=== PATIENT | female | born 1975 | race Caucasian/White ===

== ENCOUNTER 2018-03-18 18:33 | Emergency (ER) | payer MEDICAID, SELFPAY ==
[2018-03-18 19:06] VITALS: BP 112/62; PULSE 84; RESP 16; TEMP 36.7; O2SAT 100
[2018-03-18] MEDS: Normal Saline 1,000 ML 1000 ML IV (19:45)
[2018-03-18 19:50] LABS: Bilirubin Negative (Negative); Blood Small (Negative); Clarity Cloudy; Glucose Negative (Negative); Ketones Trace mg/dL (Negative); Leukocyte Esterase Negative (Negative); Nitrite Positive (Negative); Specific Gravity >= 1.030 (1.005-1.025); Urobilinogen 0.2 EU/dL (Up TO 0.2)
[2018-03-18 19:59] LABS: Absolute Basophil Count 0.05 k/cumm (0.0-0.2); Absolute Lymphocyte Count 3.33 k/cumm (1.2-3.4); Absolute Monocyte Count 0.64 k/cumm (0.11-0.7); Basophils % 0.7; Eosinophils % 2.6; HGB 12.5 g/dL (12.0-15.5); Lymphocytes % 43.7; Mean Corp. HGB Concentration 33.8 g/dL (32.0-36.0); Mean Corpuscular Hemoglobin 31.6 pg (27.0-33.0); Mean Corpuscular Volume 93.7 fL (80-95); Mean Platelet Volume 10.6 fL (8.0-11.0); Monocytes % 8.4; Neutrophils % 44.6; Platelet Count 289 x1000/uL (130-400); RBC 3.95 m/cumm (4.00-5.20); RBC Distribution Width 14.8 % (11.7-14.6); White Blood Cell Count 7.62 k/cumm (4.4-10.8)
[2018-03-18] MEDS: Normal Saline Flush 10 ML SYR IVP (20:04)
[2018-03-18] MEDS: Ketorolac 15 MG/ML VIAL IVP (20:04)
--- NOTE | 2018-03-18 20:05 | ED.GENADUL_ITS ---
Discharge Plan Disposition Patient Disposition: HOME Condition: Good Discharge Details Chief Complaint: Abd Prob Clinical Impression: Abdominal pain, Cyst of left ovary, UTI (urinary tract infection) Primary Care Provider: Tosin Steele ED Provider: Roni Tracey Home Meds and New Rx's Prescriptions: New ciprofloxacin HCl 500 mg tablet 500 mg PO BID Qty: 14 RF: 0 Continue meloxicam [Mobic] 7.5 MG tablet 7.5 - 15 mg PO DAILY Qty: 60 RF: 0 multivitamin Tablet 1 tab PO DAILY RF: 0 acetaminophen 325 mg Tablet 650 mg PO Q6H PRNRF: 0 Discharge Instructions Instructions: Ovarian Cyst (ED), Urinary Tract Infection in Women (ED) Additional Instructions: follow up with your primary care provider within the next 2 weeks for pain take 1000mg tylenol and 600mg ibuprofen every 6 hours as needed if you have severe worsening pain, persistent vomit or high fevers return to the emergency department Discharge Data Discharge Physician: Roni Tracey Medical Decision Making 42 yo female who denies chronic medical problems, prior tubal ligation, who comes in with cc of right sided abd pain since around 430. On exam she has tenderness without gurading in the ruq, no rlq pain. will obtain labs to eval for pancreatitis and hepatitis and image to eval for cholecystitis. ' pt's blood work shows no significant abnormality. CT shows ovarian cysts on the left otherwise no acute pathology and pt's pain is now gone. Her urine does show evidence of uti and she does state she has had decreased urinary output so will start tx for this. Advised f/u with her pcp and return precautions given Differential Diagnosis pancreatitis, biliary colic, cholecystitis Imaging Data Radiologic Study: Attestation: I personally reviewed and interpreted this imaging study as follows: Imaging: CT Scan Radiologist's impression: left ovarian cysts Lab Data Lab results reviewed: Yes I reviewed the patient's lab results. HPI General Mode of arrival: ambulatory . Date/Time Provider Initiated Documentation: 03/18/18 19:52 . Limitations to Documentation: no limitations . Information obtained by: patient . History of Present Illness 42 year old F presents to the emergency department with the chief complaint of abdominal pain, described as moderate, with intensity rated at 5. Quality is described as aching, and is localized to the abdomen. Patient reports no radiation. Patient started experiencing this minute(s) (4) and it has been constant. No relieving factors improve symptom(s), No exacerbating factors reported . Patient notes no other symptoms.. Patient did receive the following treatments prior to arrival, none Related Data Home Medications Medication Instructions Recorded Confirmed meloxicam [Mobic] 7.5 - 15 mg PO DAILY #60 tab-cap 08/24/15 03/18/18 acetaminophen 650 mg PO Q6H PRN 03/18/18 03/18/18 ciprofloxacin HCl 500 mg PO BID #14 tab 03/18/18 multivitamin 1 tab PO DAILY 03/18/18 03/18/18 Previous Rx's Medication Instructions Recorded ciprofloxacin HCl 500 mg PO BID #14 tab 03/18/18 Allergies Allergy/AdvReac Type Severity Reaction Status Date / Time Penicillins AdvReac Intermediate vomiting Unverified 03/18/18 19:09 General Stated Complaint: Abd Prob KRISTI: 3 Review of Systems Review of Systems All systems reviewed & are unremarkable except as noted in HPI and below Constitutional Denies chills, Denies fever(s) and Denies weakness Eyes Denies loss of vision ENT Denies change in voice Cardiovascular Denies chest pain and Denies dyspnea Respiratory Denies dyspnea Gastrointestinal Denies vomiting Genitourinary Denies dysuria Musculoskeletal Denies joint swelling Integumentary/Breasts Denies rash Neurologic Denies loss of vision and Denies weakness PFSH Family History Mother Personal history of malignant neoplasm Father Personal history of malignant neoplasm Hyperlipidemia Myocardial infarction Grandmother Diabetes Medical History Tobacco use disorder Social History Smoking/Tobacco Use Status: Current every day Surgical History FNA midline neck mass (04/10/15) Infundibular follicykar cyst excision (05/02/15) Ligation of fallopian tube (03/21/98) Exam Const General: no acute distress Orientation: alert HENMT Head: normal to inspection Ears: external ears normal General nose exam: external nose normal Mouth: moist mucous membranes Eyes General: appearance normal, both eyes and all related structures Neck Neck: normal visual inspection Resp Effort & Inspection: normal respiratory effort and able to speak in complete sentences Cardio Rate: regular rate Skin General skin exam: no rashes or lesions noted Neuro General: alert and oriented x3 Extrem General: normal to inspection Psych Mental Status: mental status grossly normal Course Vital Signs Temperature 36.7 C 03/18/18 19:06 Pulse 84 03/18/18 19:06 Respiratory Rate 16 03/18/18 19:06 Blood Pressure 112/62 03/18/18 19:06 Pulse Oximetry 100 03/18/18 19:06 Temperature 36.7 C 03/18/18 19:06 Temperature Source Skin 03/18/18 19:06 Pulse 84 03/18/18 19:06 Respiratory Rate 16 03/18/18 19:06 Respiratory Effort Non-Labored 03/18/18 19:08 Blood Pressure 112/62 03/18/18 19:06 Blood Pressure Position Sitting 03/18/18 19:06 Pulse Oximetry 100 03/18/18 19:06 Oxygen Delivery Method Room Air 03/18/18 19:06 Oxygen Flow Rate 0 03/18/18 19:06 Pain Level 7 03/18/18 19:06 Lab/Test Results Lab/Test Results: Laboratory Tests Range/Units 03/18/18 03/18/18 19:40 19:50 WBC (4.4-10.8) k/cumm 7.62 RBC (4.00-5.20) m/cumm 3.95 L Hgb (12.0-15.5) g/dL 12.5 Hct (36.0-46.0) % 37.0 MCV (80-95) fL 93.7 MCH (27.0-33.0) pg 31.6 MCHC (32.0-36.0) g/dL 33.8 RDW (11.7-14.6) % 14.8 H Plt Count (130-400) x1000/uL 289 MPV (8.0-11.0) fL 10.6 Immature Gran % 0.0 Neutrophils % 44.6 Lymphocytes % 43.7 Monocytes % 8.4 Eosinophils % 2.6 Basophils % 0.7 Absolute Neutrophils (1.2-6.7) k/cumm 3.40 Absolute Lymphocytes (1.2-3.4) k/cumm 3.33 Absolute Monocytes (0.11-0.7) k/cumm 0.64 Absolute Eosinophils (0.0-0.7) k/cumm 0.20 Absolute Basophils (0.0-0.2) k/cumm 0.05 Urine Color (Yellow) Yellow Urine Clarity Cloudy Urine pH (5-8) 6.0 Ur Specific [place] (1.005-1.025) >= 1.030 H Urine Protein (Negative) mg/dL Negative Urine Ketones (Negative) mg/dL Trace H Urine Blood (Negative) Small H Urine Nitrite (Negative) Positive H Urine Bilirubin (Negative) Negative Urine Urobilinogen (Up TO 0.2) EU/dL 0.2 Ur Leukocyte Esterase (Negative) Negative Urine Glucose (Negative) mg/dL Negative
[2018-03-18 20:11] LABS: Lipase 249 U/L (73-393)
[2018-03-18 20:13] LABS: RBC 0-2 (0-2)
[2018-03-18 20:14] LABS: Bacteria Packed HPF (Negative); Crystals Negative HPF (Negative); Epithelial Cells Rare HPF (Negative); Mucus Negative (Negative); Other Cells Rare Yeast (Negative)
[2018-03-18 20:15] LABS: C & S Indicated? Yes
[2018-03-18 20:16] LABS: Casts 0-2 Hyaline LPF (Negative)
[2018-03-18 20:17] LABS: ALT 18 U/L (12-78); AST 13 U/L (15-37); Albumin 3.9 g/dL (3.4-5.0); Alkaline Phosphatase 51 U/L (46-116); Anion Gap 9.5 mmol/L (3-11); BUN 7 mg/dL (7-18); Bilirubin, Total 0.2 mg/dL (0.2-1.0); CO2 26.5 mmol/L (21.0-32.0); CREATININE 0.69 mg/dL (0.55-1.02); Calcium 9.1 mg/dL (8.5-10.1); Chloride 105 mmol/L (98-107); Glucose 104 mg/dL (70-100); Potassium 3.8 mmol/L (3.5-5.1); Sodium 141 mmol/L (136-145); Total Protein 7.1 g/dL (6.4-8.2)
--- NOTE | 2018-03-18 20:58 | DI.CT_ITS ---
SYMPTOM/DIAGNOSIS: RT SIDED ABD PAIN ABDOMEN AND PELVIC CT: The study was conducted according to the usual protocol with an intravenous administration of 87 cc's of Omnipaque 350. The visualized lung bases are clear. Fatty infiltration of the liver is identified. No focal abnormality is seen. There is no ductal dilatation. The pancreas is normal. There is no evidence of cholelithiasis. The spleen and adrenals are normal. The kidneys are normal. The appendix is normal. The bladder is suboptimally distended but appears grossly normal. There are several enhancing 2-3 cm. cysts in the left ovary. The left ovary is mildly enlarged compared with its right side measuring up to 3.8 by 5.9 cm. Note is made of several prominent enhancing, 2-3 cm. cysts or follicles. The right ovary is unremarkable. There is a small quantity of free fluid in the pelvis. Evaluation of the bony structures reveals mild bilateral pars intra-articularis defects at L 5 with a grade I spondylolisthesis. Note is made of a small fat containing umbilical hernia. There is no aortic aneurysm. There is no lymphadenopathy. SUMMARY: The left ovary is enlarged with several prominent cystic lesions. The right ovary is unremarkable. No acute abnormality is seen, however correlation of the examination with pelvic ultrasound is suggested.
[2018-03-18 21:39] VITALS: BP 106/63; PULSE 79; RESP 16; TEMP 37.7; O2SAT 99
--- NOTE | 2018-03-18 21:43 | DI.VRAD_ITS ---
EXAM: CT Abdomen and Pelvis With Intravenous Contrast EXAM DATE/TIME: 03/18/2018 8:58 PM CLINICAL HISTORY: 42 years old, female; Pain; Abdominal pain; Localized; Right; Prior surgery; Surgery type: Tubal ligation TECHNIQUE: Axial computed tomography images of the abdomen and pelvis with intravenous contrast. Coronal and sagittal reformatted images were created and reviewed. CONTRAST: 87 ml of Omnipaque 350 administered intravenously. COMPARISON: No relevant prior studies available. FINDINGS: Lower thorax: The visualized portions of the lung bases are clear. ABDOMEN: Liver: There is a diffuse decrease in hepatic parenchymal density, consistent with fatty infiltration. There are no focal liver lesions present. Gallbladder and bile ducts: Normal. No calcified stones. No ductal dilation. Pancreas: Normal. No ductal dilation. Spleen: Normal. No splenomegaly. Adrenals: Normal. No mass. Kidneys and ureters: Normal. No hydronephrosis. Stomach and bowel: Normal. No obstruction. No mucosal thickening. Appendix: A normal appendix is identified. PELVIS: Bladder: Unremarkable as visualized. Reproductive: There are several enhancing in 2-3 cm cyst in the left ovary. The left ovary is slightly enlarged compared to the right measuring 38 x 59 mm, with several prominent enhancing 2-3 cm cysts or follicles. The right ovary is unremarkable. ABDOMEN and PELVIS: Intraperitoneal space: There is trace free fluid in the pelvis. Bones/joints: There are bilateral pars interarticularis defects at L5 with grade 1 anterolisthesis. Soft tissues: There is a small fat-containing umbilical hernia. Vasculature: Normal. No abdominal aortic aneurysm. Lymph nodes: Normal. No enlarged lymph nodes. IMPRESSION: Enlarged left ovary with several prominent cystic lesions. Right ovary unremarkable. No other acute abnormality. Grade 1 spondylolisthesis at L5-S1. Dictated and Authenticated by: Tiff Mar MD. Ordering:TARIK MONROY MD
[2018-03-18] MEDS: Ciprofloxacin 500 MG TAB PO (21:56)
== END 2018-03-18 22:14 | disposition home or self-care (01) ==
PROVIDERS: Emergency Provider Emergency Medicine; PCP Nurse Practitioner Family
DX: R10.11 Right upper quadrant pain (principal); N39.0 Urinary tract infection, site not specified; B96.20 Unspecified Escherichia coli [E. coli] as the cause of diseases classified elsewhere; N83.202 Unspecified ovarian cyst, left side
CPT/HCPCS: 36415; 80053; 83690; 87077; 96361; 96374; 99285; 74177; 81003; 81015; 85025; 87086; 87186; J1885

== ENCOUNTER 2018-03-25 16:26 | Outpatient (CLI) | payer MEDICAID, SELFPAY | END 2018-03-25 16:46 | PROVIDERS: PCP Nurse Practitioner Family; Visit Provider Nurse Practitioner Family | DX: R53.83 Other fatigue (principal) | CPT/HCPCS: 36415; 84443 ==

== ENCOUNTER 2018-03-27 17:00 | Emergency (ER) | payer MEDICAID, SELFPAY ==
[2018-03-27 17:14] VITALS: BP 120/65; PULSE 102; RESP 18; TEMP 36.9; O2SAT 99
--- NOTE | 2018-03-27 17:38 | W.ED.GENAD ---
Discharge Plan Disposition Patient Disposition: HOME Condition: Improving Discharge Details Chief Complaint: RashLesion Clinical Impression: Urticaria Primary Care Provider: Tosin Steele ED Provider: Phill Short Home Meds and New Rx's Prescriptions: New prednisone 20 mg tablet 40 mg PO DAILY 5 Days Qty: 10 RF: 0 Continue clotrimazole 2 % cream 1 appful VG HS 3 Days Qty: 21 RF: 0 meloxicam [Mobic] 7.5 MG tablet 7.5 - 15 mg PO DAILY Qty: 60 RF: 0 multivitamin Tablet 1 tab PO DAILY RF: 0 acetaminophen 325 mg Tablet 650 mg PO Q6H PRNRF: 0 Discontinued ciprofloxacin HCl 500 mg tablet 500 mg PO BID Qty: 14 RF: 0 Discharge Instructions Instructions: Urticaria (ED) Additional Instructions: Please discontinue the ciprofloxacin prescription as he may have had an allergic reaction, as we discussed. May use Benadryl 25-50 mg at bedtime for persistent itching. Please take prednisone as prescribed, next dose tomorrow. You may also use [id number] Zantac 75-150 mg daily for persistent itching. Return to the ER if you have progressive or worsening rash, develop a fever, or any other acute concern. Medical Decision Making 42-year-old female with diffuse pruritic, urticarial rash that began after starting ciprofloxacin. She also has an exposure to a new source of water. Does not appear consistent with Colon-Dom, does appear consistent with mild urticarial reaction, may be due to drug or dermatologic exposure. Will treat with oral antihistamines and a burst of steroids. Discussed with the patient return precautions to the ED, she understands homecare HPI General Mode of arrival: ambulatory. Date/Time Provider Initiated Documentation: 03/27/18 17:29. Limitations to Documentation: no limitations. Information obtained by: patient. History of Present Illness 42 year old F presents to the emergency department with the chief complaint of Diffuse itching rash, described as moderate, Quality is described as constant, Patient started experiencing this day(s) and it has been constant. other things that improve symptom(s), (Benadryl) No exacerbating factors reported . HPI Narrative: 42-year-old female presents with itching rash over 2 days time. It began after starting ciprofloxacin for urinary tract infection of which she has had 9 of 10 doses. The urinary tract infection is improving. She also notes that last week she had a CT scan with IV contrast but that not have any itching rash at that time. She has no shortness of breath, wheezing, change to voice or difficulty swallowing. Her itching rash did improve somewhat with Benadryl last night. She has not had a fever. She states that she has otherwise is recovering from a mild upper respiratory illness Related Data Home Medications Medication Instructions Recorded Confirmed meloxicam [Mobic] 7.5 - 15 mg PO DAILY #60 tab-cap 08/24/15 03/27/18 acetaminophen 650 mg PO Q6H PRN 03/18/18 03/27/18 multivitamin 1 tab PO DAILY 03/18/18 03/27/18 clotrimazole 2 % vaginal cream 1 appful VG HS 3 Days #21 gm 03/25/18 03/27/18 prednisone 40 mg PO DAILY 5 Days #10 tab 03/27/18 Previous Rx's Medication Instructions Recorded clotrimazole 2 % vaginal cream 1 appful VG HS 3 Days #21 gm 03/25/18 prednisone 40 mg PO DAILY 5 Days #10 tab 03/27/18 Allergies Allergy/AdvReac Type Severity Reaction Status Date / Time Penicillins AdvReac Intermediate vomiting Unverified 03/27/18 17:20 General Stated Complaint: RashLesion KRISTI: 4 Review of Systems Review of Systems 6 systems reviewed and otherwise negative [facility] Family History Mother Personal history of malignant neoplasm Father Personal history of malignant neoplasm Hyperlipidemia Myocardial infarction Grandmother Diabetes Medical History Ovarian cyst (Chronic) Tobacco use disorder (Chronic 03/29/15) Irritable bowel syndrome with diarrhea (Chronic 03/08/15) Carpal tunnel syndrome on both sides (Chronic 03/08/15) Neck mass (Resolved) Tobacco use disorder Social History Smoking/Tobacco Use Status: Current every day Surgical History FNA midline neck mass (04/10/15) Infundibular follicykar cyst excision (05/02/15) Ligation of fallopian tube (03/21/98) Exam Narrative Exam Narrative: GEN: awake, alert, oriented 3. Pleasant, well groomed, interactive. HEAD: Normocephalic, atraumatic ENT: Mucous membranes moist, oropharynx unremarkable, External ear exam unremarkable EYES: PERRL, EOMI NECK: Full ROM, no GINGER, no menigismus CHEST/RESP: Nontender, clear to auscultation bilateral, no wheeze/rhonchi/rales CARDIOVASCULAR: RRR, no murmur, rub nelson. 2+ Rad pulse bilateral ABDOMEN: Soft, nontender, no mass. +Bowel sounds EXT: Full ROM, no edema, no rash Neuro: Grossly normal neurologic exam, conversant, interactive. Psych: Speech fluent, thoughts congruent, affect normal Skin: Diffuse, raised, erythematous plaques that mynor with pressure. There is no vesicles. No oral lesions. Course Vital Signs Temperature 36.9 C 03/27/18 17:14 Pulse 102 H 03/27/18 17:14 Respiratory Rate 18 03/27/18 17:14 Blood Pressure 120/65 03/27/18 17:14 Pulse Oximetry 99 03/27/18 17:14 Temperature 36.9 C 03/27/18 17:14 Temperature Source Skin 03/27/18 17:14 Pulse 102 H 03/27/18 17:14 Respiratory Rate 18 03/27/18 17:14 Respiratory Effort 03/27/18 17:18 Blood Pressure 120/65 03/27/18 17:14 Blood Pressure Position Sitting 03/27/18 17:14 Pulse Oximetry 99 03/27/18 17:14 Oxygen Delivery Method Room Air 03/27/18 17:14 Oxygen Flow Rate 0 03/27/18 17:14 Pain Level 0 03/27/18 17:14
--- NOTE | 2018-03-27 17:43 | ED.GENADUL_ITS ---
Discharge Plan Disposition Patient Disposition: HOME Condition: Improving Discharge Details Chief Complaint: RashLesion Clinical Impression: Urticaria Primary Care Provider: Tosin Steele ED Provider: Phill Short Home Meds and New Rx's Prescriptions: New prednisone 20 mg tablet 40 mg PO DAILY 5 Days Qty: 10 RF: 0 Continue clotrimazole 2 % cream 1 appful VG HS 3 Days Qty: 21 RF: 0 meloxicam [Mobic] 7.5 MG tablet 7.5 - 15 mg PO DAILY Qty: 60 RF: 0 multivitamin Tablet 1 tab PO DAILY RF: 0 acetaminophen 325 mg Tablet 650 mg PO Q6H PRNRF: 0 Discontinued ciprofloxacin HCl 500 mg tablet 500 mg PO BID Qty: 14 RF: 0 Discharge Instructions Instructions: Urticaria (ED) Additional Instructions: Please discontinue the ciprofloxacin prescription as he may have had an allergic reaction, as we discussed. May use Benadryl 25-50 mg at bedtime for persistent itching. Please take prednisone as prescribed, next dose tomorrow. You may also use [id number] Zantac 75-150 mg daily for persistent itching. Return to the ER if you have progressive or worsening rash, develop a fever, or any other acute concern. Medical Decision Making 42-year-old female with diffuse pruritic, urticarial rash that began after starting ciprofloxacin. She also has an exposure to a new source of water. Does not appear consistent with Colon-Dom, does appear consistent with mild urticarial reaction, may be due to drug or dermatologic exposure. Will treat with oral antihistamines and a burst of steroids. Discussed with the patient return precautions to the ED, she understands homecare HPI General Mode of arrival: ambulatory . Date/Time Provider Initiated Documentation: 03/27/18 17:29 . Limitations to Documentation: no limitations . Information obtained by: patient . History of Present Illness 42 year old F presents to the emergency department with the chief complaint of Diffuse itching rash, described as moderate, Quality is described as constant, Patient started experiencing this day(s) and it has been constant. other things that improve symptom(s), (Benadryl) No exacerbating factors reported . HPI Narrative: 42-year-old female presents with itching rash over 2 days time. It began after starting ciprofloxacin for urinary tract infection of which she has had 9 of 10 doses. The urinary tract infection is improving. She also notes that last week she had a CT scan with IV contrast but that not have any itching rash at that time. She has no shortness of breath, wheezing, change to voice or difficulty swallowing. Her itching rash did improve somewhat with Benadryl last night. She has not had a fever. She states that she has otherwise is recovering from a mild upper respiratory illness Related Data Home Medications Medication Instructions Recorded Confirmed meloxicam [Mobic] 7.5 - 15 mg PO DAILY #60 tab-cap 08/24/15 03/27/18 acetaminophen 650 mg PO Q6H PRN 03/18/18 03/27/18 multivitamin 1 tab PO DAILY 03/18/18 03/27/18 clotrimazole 2 % vaginal cream 1 appful VG HS 3 Days #21 gm 03/25/18 03/27/18 prednisone 40 mg PO DAILY 5 Days #10 tab 03/27/18 Previous Rx's Medication Instructions Recorded clotrimazole 2 % vaginal cream 1 appful VG HS 3 Days #21 gm 03/25/18 prednisone 40 mg PO DAILY 5 Days #10 tab 03/27/18 Allergies Allergy/AdvReac Type Severity Reaction Status Date / Time Penicillins AdvReac Intermediate vomiting Unverified 03/27/18 17:20 General Stated Complaint: RashLesion KRISTI: 4 Review of Systems Review of Systems 6 systems reviewed and otherwise negative [facility] Family History Mother Personal history of malignant neoplasm Father Personal history of malignant neoplasm Hyperlipidemia Myocardial infarction Grandmother Diabetes Medical History Ovarian cyst (Chronic) Tobacco use disorder (Chronic 03/29/15) Irritable bowel syndrome with diarrhea (Chronic 03/08/15) Carpal tunnel syndrome on both sides (Chronic 03/08/15) Neck mass (Resolved) Tobacco use disorder Social History Smoking/Tobacco Use Status: Current every day Surgical History FNA midline neck mass (04/10/15) Infundibular follicykar cyst excision (05/02/15) Ligation of fallopian tube (03/21/98) Exam Narrative Exam Narrative: GEN: awake, alert, oriented 3. Pleasant, well groomed, interactive. HEAD: Normocephalic, atraumatic ENT: Mucous membranes moist, oropharynx unremarkable, External ear exam unremarkable EYES: PERRL, EOMI NECK: Full ROM, no GINGER, no menigismus CHEST/RESP: Nontender, clear to auscultation bilateral, no wheeze/rhonchi/rales CARDIOVASCULAR: RRR, no murmur, rub nelson. 2+ Rad pulse bilateral ABDOMEN: Soft, nontender, no mass. +Bowel sounds EXT: Full ROM, no edema, no rash Neuro: Grossly normal neurologic exam, conversant, interactive. Psych: Speech fluent, thoughts congruent, affect normal Skin: Diffuse, raised, erythematous plaques that mynor with pressure. There is no vesicles. No oral lesions. Course Vital Signs Temperature 36.9 C 03/27/18 17:14 Pulse 102 H 03/27/18 17:14 Respiratory Rate 18 03/27/18 17:14 Blood Pressure 120/65 03/27/18 17:14 Pulse Oximetry 99 03/27/18 17:14 Temperature 36.9 C 03/27/18 17:14 Temperature Source Skin 03/27/18 17:14 Pulse 102 H 03/27/18 17:14 Respiratory Rate 18 03/27/18 17:14 Respiratory Effort 03/27/18 17:18 Blood Pressure 120/65 03/27/18 17:14 Blood Pressure Position Sitting 03/27/18 17:14 Pulse Oximetry 99 03/27/18 17:14 Oxygen Delivery Method Room Air 03/27/18 17:14 Oxygen Flow Rate 0 03/27/18 17:14 Pain Level 0 03/27/18 17:14
[2018-03-27 18:03] VITALS: BP 120/65; PULSE 102; RESP 18; TEMP 36.9; O2SAT 99
== END 2018-03-27 18:05 | disposition home or self-care (01) ==
PROVIDERS: Emergency Provider Emergency Medicine; PCP Nurse Practitioner Family
DX: L50.0 Allergic urticaria (principal); T36.8X5A Adverse effect of other systemic antibiotics, initial encounter
CPT/HCPCS: 99283; J7512

== ENCOUNTER 2018-03-30 23:26 | Emergency (ER) | payer MEDICAID, SELFPAY ==
[2018-03-30 23:28] VITALS: BP 140/70; PULSE 96; RESP 20; TEMP 36.6; O2SAT 100
[2018-03-31] MEDS: Ibuprofen 600 MG TAB PO (00:06)
--- NOTE | 2018-03-31 00:31 | W.ED.GENAD ---
Discharge Plan Disposition Patient Disposition: HOME Discharge Details Chief Complaint: Abd Prob Clinical Impression: Pelvic pain, Painful menstruation Primary Care Provider: Tosin Steele ED Provider: Manfred Jade Home Meds and New Rx's Prescriptions: Continue meloxicam [Mobic] 7.5 MG tablet 7.5 - 15 mg PO DAILY Qty: 60 RF: 0 prednisone 20 mg tablet 40 mg PO DAILY 5 Days Qty: 10 RF: 0 multivitamin Tablet 1 tab PO DAILY RF: 0 acetaminophen 325 mg Tablet 650 mg PO Q6H PRNRF: 0 Discharge Instructions Instructions: Abdominal Pain (ED) Additional Instructions: Please take tylenol 650mg every 6 hours starting tomorrow. Please take ibuprofen 600mg every 6-8 hours as needed for pain. DO NOT TAKE MOBIC (Meloxicam) while taking ibuprofen. Please have your pelvic ultrasound as scheduled and follow-up with gynecology and your primary care physician. Return to the ER for any worsening or new concerning symptoms. Stand Alone Forms: Work Release Referrals: Tosin Steele NP [Primary Care Provider] - Izzy Yang MD [ [facility]YSICIAN] - Medical Decision Making 42-year-old female smoker with history of left ovarian cyst, recently diagnosed, here with menstrual cramping and lower abdominal discomfort bilaterally. No peritoneal findings on exam. Patient hemodynamically stable. Pelvic exam deferred. I reviewed CT imaging from prior ED visit 03/18/2018: Enlarged left ovary with several prominent cystic lesions, right ovary unremarkable, small quantity of free fluid in the pelvis. Patient is scheduled to have a pelvic ultrasound later this week. I encouraged her to keep this appointment. Patient was given ibuprofen here in the emergency department and noted some improvement. Patient appeared comfortable at time of discharge. Reviewed usual and customary discharge instructions including discussion of medications. I encouraged her to return immediately to the emergency department for any worsening or new concerning symptoms HPI General Mode of arrival: ambulatory. Date/Time Provider Initiated Documentation: 03/30/18 23:33. Limitations to Documentation: no limitations. Information obtained by: patient. HPI Narrative: 42-year-old female smoker with history of recently diagnosed ovarian cysts, recent urinary tract infection now status post antibiotic treatment, tubal ligation, here with chief complaint of abdominal pain. Patient notes pelvic abdominal pain that feels like severe menstrual cramps that started this morning. Pain is persisted all day and was worse at work. Pain moderate to severe. She has associated anxiety and is quite stressed with work, recent move, and now diagnosed with ovarian cyst. Patient notes that her mother and daughter both suffered from severe menstrual cramping and ovarian cysts and she is worried that she may be developing similar. She has never had similar in the past. Patient notes LMP 03/05/18 - this is typical cycle length. Related Data Home Medications Medication Instructions Recorded Confirmed meloxicam [Mobic] 7.5 - 15 mg PO DAILY #60 tab-cap 08/24/15 03/30/18 acetaminophen 650 mg PO Q6H PRN 03/18/18 03/30/18 multivitamin 1 tab PO DAILY 03/18/18 03/30/18 prednisone 40 mg PO DAILY 5 Days #10 tab 03/27/18 03/30/18 Previous Rx's Medication Instructions Recorded prednisone 40 mg PO DAILY 5 Days #10 tab 03/27/18 Allergies Allergy/AdvReac Type Severity Reaction Status Date / Time ciprofloxacin Allergy rash Verified 03/30/18 23:31 Penicillins AdvReac Intermediate vomiting Unverified 03/30/18 23:31 General Stated Complaint: Abd Prob KRISTI: 3 Review of Systems Review of Systems All systems reviewed & are unremarkable except as noted in HPI and below Constitutional Denies chills and Reports fever(s) (Low-grade earlier today) Gastrointestinal Reports as per HPI, Reports abdominal pain, Denies nausea and Denies vomiting Genitourinary Reports as per HPI, Denies hematuria, Denies dysuria, Reports pelvic pain, Denies flank pain, Denies urinary urgency and Denies vaginal discharge PFSH Family History Mother Personal history of malignant neoplasm Father Personal history of malignant neoplasm Hyperlipidemia Myocardial infarction Grandmother Diabetes Medical History Ovarian cyst (Chronic) Tobacco use disorder (Chronic 03/29/15) Irritable bowel syndrome with diarrhea (Chronic 03/08/15) Carpal tunnel syndrome on both sides (Chronic 03/08/15) Neck mass (Resolved) Tobacco use disorder Social History Smoking/Tobacco Use Status: Current every day Surgical History FNA midline neck mass (04/10/15) Infundibular follicykar cyst excision (05/02/15) Ligation of fallopian tube (03/21/98) Exam Const General: cooperative and no acute distress [facility] Head: normocephalic and atraumatic Mouth: moist mucous membranes Eyes Conjunctivae: normal conjunctivae Sclera: normal sclerae EOM: EOM intact bilaterally Neck Neck: trachea midline and supple Resp Auscultation: clear to auscultation bilaterally, no rales, no rhonchi and no wheezes Cardio Jugular venous pressure: no JVD Rate: regular rate and not tachycardic Rhythm: regular rhythm GI Inspection: non-distended Palpation: soft, not firm, no guarding, no masses, not rigid, tender (Bilateral lower quadrants) not suprapubicly and with no rebound tenderness and No ascites Auscultation: normal bowel sounds General: bladder normal to palpation and No CVA tenderness Bimanual Exam- Vagina & Uterus: bladder normal to palpation Skin General skin exam: no rashes or lesions noted Neuro General: alert, awake, oriented x3 and tone normal Extrem General: no edema Psych Appearance: grossly normal Mental Status: mental status grossly normal Speech and Movement: speech and movement normal Course Vital Signs Temperature 36.6 C 03/30/18 23:28 Pulse 96 H 03/30/18 23:28 Respiratory Rate 20 03/30/18 23:28 Blood Pressure 140/70 03/30/18 23:28 Pulse Oximetry 100 03/30/18 23:28 Temperature 36.6 C 03/30/18 23:28 Temperature Source Skin 03/30/18 23:28 Pulse 96 H 03/30/18 23:28 Respiratory Rate 20 03/30/18 23:28 Respiratory Effort Non-Labored 03/30/18 23:30 Blood Pressure 140/70 03/30/18 23:28 Blood Pressure Position Sitting 03/30/18 23:28 Pulse Oximetry 100 03/30/18 23:28 Oxygen Delivery Method Room Air 03/30/18 23:28 Oxygen Flow Rate 0 03/30/18 23:28
--- NOTE | 2018-03-31 00:49 | ED.GENADUL_ITS ---
Discharge Plan Disposition Patient Disposition: HOME Discharge Details Chief Complaint: Abd Prob Clinical Impression: Pelvic pain, Painful menstruation Primary Care Provider: Tosin Steele ED Provider: Manfred Jade Home Meds and New Rx's Prescriptions: Continue meloxicam [Mobic] 7.5 MG tablet 7.5 - 15 mg PO DAILY Qty: 60 RF: 0 prednisone 20 mg tablet 40 mg PO DAILY 5 Days Qty: 10 RF: 0 multivitamin Tablet 1 tab PO DAILY RF: 0 acetaminophen 325 mg Tablet 650 mg PO Q6H PRNRF: 0 Discharge Instructions Instructions: Abdominal Pain (ED) Additional Instructions: Please take tylenol 650mg every 6 hours starting tomorrow. Please take ibuprofen 600mg every 6-8 hours as needed for pain. DO NOT TAKE MOBIC (Meloxicam) while taking ibuprofen. Please have your pelvic ultrasound as scheduled and follow-up with gynecology and your primary care physician. Return to the ER for any worsening or new concerning symptoms. Stand Alone Forms: Work Release Referrals: Tosin Steele NP [Primary Care Provider] - Izzy Yang MD [ [facility] STAFF PHYSICIAN] - Medical Decision Making 42-year-old female smoker with history of left ovarian cyst, recently diagnosed , here with menstrual cramping and lower abdominal discomfort bilaterally. No peritoneal findings on exam. Patient hemodynamically stable. Pelvic exam deferred. I reviewed CT imaging from prior ED visit 03/18/2018: Enlarged left ovary with several prominent cystic lesions, right ovary unremarkable, small quantity of free fluid in the pelvis. Patient is scheduled to have a pelvic ultrasound later this week. I encouraged her to keep this appointment. Patient was given ibuprofen here in the emergency department and noted some improvement. Patient appeared comfortable at time of discharge. Reviewed usual and customary discharge instructions including discussion of medications. I encouraged her to return immediately to the emergency department for any worsening or new concerning symptoms HPI General Mode of arrival: ambulatory . Date/Time Provider Initiated Documentation: 03/30/18 23:33 . Limitations to Documentation: no limitations . Information obtained by: patient . HPI Narrative: 42-year-old female smoker with history of recently diagnosed ovarian cysts, recent urinary tract infection now status post antibiotic treatment, tubal ligation, here with chief complaint of abdominal pain. Patient notes pelvic abdominal pain that feels like severe menstrual cramps that started this morning. Pain is persisted all day and was worse at work. Pain moderate to severe. She has associated anxiety and is quite stressed with work, recent move, and now diagnosed with ovarian cyst. Patient notes that her mother and daughter both suffered from severe menstrual cramping and ovarian cysts and she is worried that she may be developing similar. She has never had similar in the past. Patient notes LMP 03/05/18 - this is typical cycle length. Related Data Home Medications Medication Instructions Recorded Confirmed meloxicam [Mobic] 7.5 - 15 mg PO DAILY #60 tab-cap 08/24/15 03/30/18 acetaminophen 650 mg PO Q6H PRN 03/18/18 03/30/18 multivitamin 1 tab PO DAILY 03/18/18 03/30/18 prednisone 40 mg PO DAILY 5 Days #10 tab 03/27/18 03/30/18 Previous Rx's Medication Instructions Recorded prednisone 40 mg PO DAILY 5 Days #10 tab 03/27/18 Allergies Allergy/AdvReac Type Severity Reaction Status Date / Time ciprofloxacin Allergy rash Verified 03/30/18 23:31 Penicillins AdvReac Intermediate vomiting Unverified 03/30/18 23:31 General Stated Complaint: Abd Prob KRISTI: 3 Review of Systems Review of Systems All systems reviewed & are unremarkable except as noted in HPI and below Constitutional Denies chills and Reports fever(s) (Low-grade earlier today) Gastrointestinal Reports as per HPI, Reports abdominal pain, Denies nausea and Denies vomiting Genitourinary Reports as per HPI, Denies hematuria, Denies dysuria, Reports pelvic pain, Denies flank pain, Denies urinary urgency and Denies vaginal discharge PFSH Family History Mother Personal history of malignant neoplasm Father Personal history of malignant neoplasm Hyperlipidemia Myocardial infarction Grandmother Diabetes Medical History Ovarian cyst (Chronic) Tobacco use disorder (Chronic 03/29/15) Irritable bowel syndrome with diarrhea (Chronic 03/08/15) Carpal tunnel syndrome on both sides (Chronic 03/08/15) Neck mass (Resolved) Tobacco use disorder Social History Smoking/Tobacco Use Status: Current every day Surgical History FNA midline neck mass (04/10/15) Infundibular follicykar cyst excision (05/02/15) Ligation of fallopian tube (03/21/98) Exam Const General: cooperative and no acute distress [facility] Head: normocephalic and atraumatic Mouth: moist mucous membranes Eyes Conjunctivae: normal conjunctivae Sclera: normal sclerae EOM: EOM intact bilaterally Neck Neck: trachea midline and supple Resp Auscultation: clear to auscultation bilaterally, no rales, no rhonchi and no wheezes Cardio Jugular venous pressure: no JVD Rate: regular rate and not tachycardic Rhythm: regular rhythm GI Inspection: non-distended Palpation: soft, not firm, no guarding, no masses, not rigid, tender (Bilateral lower quadrants) not suprapubicly and with no rebound tenderness and No ascites Auscultation: normal bowel sounds General: bladder normal to palpation and No CVA tenderness Bimanual Exam- Vagina & Uterus: bladder normal to palpation Skin General skin exam: no rashes or lesions noted Neuro General: alert, awake, oriented x3 and tone normal Extrem General: no edema Psych Appearance: grossly normal Mental Status: mental status grossly normal Speech and Movement: speech and movement normal Course Vital Signs Temperature 36.6 C 03/30/18 23:28 Pulse 96 H 03/30/18 23:28 Respiratory Rate 20 03/30/18 23:28 Blood Pressure 140/70 03/30/18 23:28 Pulse Oximetry 100 03/30/18 23:28 Temperature 36.6 C 03/30/18 23:28 Temperature Source Skin 03/30/18 23:28 Pulse 96 H 03/30/18 23:28 Respiratory Rate 20 03/30/18 23:28 Respiratory Effort Non-Labored 03/30/18 23:30 Blood Pressure 140/70 03/30/18 23:28 Blood Pressure Position Sitting 03/30/18 23:28 Pulse Oximetry 100 03/30/18 23:28 Oxygen Delivery Method Room Air 03/30/18 23:28 Oxygen Flow Rate 0 03/30/18 23:28
== END 2018-03-31 00:46 | disposition home or self-care (01) ==
LOC: ER 03-31 00:47
PROVIDERS: Emergency Provider Student in an Organized Health Care Education/Training Program; PCP Nurse Practitioner Family
DX: R10.2 Pelvic and perineal pain (principal); N94.6 Dysmenorrhea, unspecified
CPT/HCPCS: 99283

== ENCOUNTER 2018-04-03 00:40 | Outpatient (CLI) | payer MEDICAID, SELFPAY ==
--- NOTE | 2018-04-03 09:49 | DI.US_ITS ---
SYMPTOMS/DIAGNOSIS: SEVERAL LT OVARIAN CYSTS, LLQ ABD PAIN, M83.209 PELVIC ULTRASOUND: Transabdominal and transvaginal examination was performed. Comparison CT scan is 03/18/18. The uterus measures 7.4 cm long x 4.1 cm AP x 5.1 cm transverse. The endometrial stripe is within normal limits at .2 cm. No suspicious myometrial masses are present. The right ovary measures 3.7 x 1.5 x 2.5 cm. Small follicular cysts are seen. There is normal blood flow to the right ovary. The left ovary measures 3.3 x 2.1 x 3.0 cm. There are small follicular cysts. There is normal blood flow to the left ovary. No free pelvic fluid or hydronephrosis is identified. IMPRESSION: Normal pelvic ultrasound.
== END 2018-04-03 01:00 ==
PROVIDERS: PCP Nurse Practitioner Family; Visit Provider Nurse Practitioner Family
DX: R10.32 Left lower quadrant pain (principal); N83.01 Follicular cyst of right ovary; N83.02 Follicular cyst of left ovary
CPT/HCPCS: 76830; 76856

== ENCOUNTER 2018-04-08 10:23 | Outpatient (REF) | payer MEDICAID, SELFPAY ==
[2018-04-10 13:05] LABS: Chlamydia Result Negative; GC Result Negative; Specimen Description CERVIX
== END 2018-04-08 10:43 ==
LOC: LBN 10:23
PROVIDERS: PCP Nurse Practitioner Family; Visit Provider Obstetrics & Gynecology
DX: R10.2 Pelvic and perineal pain (principal); Z11.3 Encounter for screening for infections with a predominantly sexual mode of transmission
CPT/HCPCS: 87491; 87591; 87480; 87510; 87660

== ENCOUNTER 2018-08-08 14:34 | Emergency (ER) | payer MEDICAID, SELFPAY ==
[2018-08-08] VITALS (39 sets, daily range): BP systolic 92–109; BP diastolic 52–82; PULSE 78–107; RESP 13–28; TEMP 36.7–37.3; O2SAT 96–100
--- NOTE | 2018-08-08 14:54 | W.ED.GENAD ---
Discharge Plan Disposition Patient Disposition: HOME Discharge Details Chief Complaint: Chest Pain Clinical Impression: Palpitations, Chest pain Reason For Visit: chest pain Primary Care Provider: Tosin Steele ED Provider: Manfred Jade Home Meds and New Rx's Prescriptions: New aspirin 81 mg tablet,delayed release (DR/EC) 81 mg PO DAILY Qty: 30 RF: 0 Continued meloxicam [Mobic] 7.5 MG tablet 7.5 - 15 mg PO PRN PRNQty: 60 RF: 0 multivitamin Tablet 1 tab PO DAILY RF: 0 Discharge Instructions Instructions: Chest Pain (ED), Palpitations (ED) Additional Instructions: You should have a stress test performed as soon as possible and ideally within the next 72 hours. Please call to arrange stress test -see separate form. Avoid all caffeinated products. Please contact your primary care physician to arrange follow-up. Return to the ER for any worsening or new concerning symptoms. Stand Alone Forms: Work Release Referrals: Tosin Steele NP [Primary Care Provider] - Medical Decision Making 15:00 --43-year-old female presents after sudden onset of palpitations and episode of tachycardia with associated chest discomfort. Patient now asymptomatic but continues to have mild tachycardia which I suspect is secondary to anxiety. ECG reviewed and interpreted by me: Sinus tachycardia 102 bpm, normal axis, QTC 430, ND interval 142, no STEMI, nondiagnostic. Consider electrolyte abnormalities. Consider ACS. Consider arrhythmia. --Labs reviewed and nondiagnostic. Troponin and delta troponin negative. D-dimer negative. Chest x-ray interpreted by radiology as no acute process. Patient reassessed and heart rate improved. No recurrent chest discomfort here. Plan is to have the patient follow-up for outpatient stress test. I encouraged her to return for any worsening or new concerning symptoms. Disposition decision was made weighing the risks and benefits of hospitalization versus outpatient treatment, the risk for further decompensation, and the patient's wishes. The patient was stable and requested discharge. Prior to discharge, my usual and customary return precautions were reviewed with the patient - this included follow-up instructions and reason to return to the emergency department if condition worsens, does not improve as expected, or other new concerns arise. HPI General Mode of arrival: ambulatory. Date/Time Provider Initiated Documentation: 08/08/18 14:53. Limitations to Documentation: no limitations. Information obtained by: patient. HPI Narrative: 43-year-old female presents with chief complaint of chest discomfort. Patient notes that around 2:15 PM today she developed palpitations. She had sensation like her heart was racing. She measured her heart rate to be 137bpm. At around 2:30 PM she developed discomfort. Discomfort described as a tightness. Discomfort was moderate. She also noted some tingling in her hands and pain that radiated down her left arm. Symptoms are resolved after about 1/2-hour. No associated nausea or abdominal pain. No associated leg pain or swelling. Related Data Home Medications Medication Instructions Recorded Confirmed meloxicam [Mobic] 7.5 - 15 mg PO PRN PRN #60 tab-cap 08/24/15 08/08/18 multivitamin 1 tab PO DAILY 03/18/18 08/08/18 aspirin 81 mg PO DAILY #30 tab 08/08/18 Previous Rx's Medication Instructions Recorded aspirin 81 mg PO DAILY #30 tab 08/08/18 Allergies Allergy/AdvReac Type Severity Reaction Status Date / Time ciprofloxacin Allergy rash Verified 08/08/18 14:50 Penicillins AdvReac Intermediate vomiting Unverified 08/08/18 14:50 General Stated Complaint: Chest Pain KRISTI: 2 Review of Systems Review of Systems All systems reviewed & are unremarkable except as noted in HPI and below Cardiovascular Reports as per HPI, Reports chest pain, Denies syncope, Reports rapid heart rate, Denies pedal edema and Reports dyspnea (during episode) Respiratory Reports dyspnea (during episode) Neurologic Denies syncope [facility] Medical History Ovarian cyst (Chronic) Tobacco use disorder (Chronic 03/29/15) Irritable bowel syndrome with diarrhea (Chronic 03/08/15) Carpal tunnel syndrome on both sides (Chronic 03/08/15) Neck mass (Resolved) Tobacco use disorder Surgical History FNA midline neck mass (04/10/15) Infundibular follicykar cyst excision (05/02/15) Ligation of fallopian tube (03/21/98) Family History Mother Personal history of malignant neoplasm Father Personal history of malignant neoplasm Hyperlipidemia Myocardial infarction Grandmother Diabetes Social History number of children: 2 highest education level completed: high school graduate current occupational status: employed current occupation: [employer]KING [employer] pets and animals: Yes Smoking and Tabacco status: Current every day alcohol intake: never substance use type: does not use Seatbelt use: always Female Reproductive History Menstrual control method: permanent sterilization History History 3 Para 2 Hx # Term Pregnancies Multiple births Hx # Pregnancies Ectopic pregnancies AB induced 1 Hx Number of Living Children AB spontaneous Exam Const General: cooperative and no acute distress [facility] Head: normocephalic and atraumatic Mouth: moist mucous membranes Eyes Conjunctivae: normal conjunctivae Sclera: normal sclerae EOM: EOM intact bilaterally Neck Neck: trachea midline and supple Thyroid: thyroid normal Resp Auscultation: clear to auscultation bilaterally, no rales, no rhonchi and no wheezes Cardio Jugular venous pressure: no JVD Rate: regular rate and not tachycardic Rhythm: regular rhythm GI Palpation: soft, not firm, no guarding, no masses, not rigid and nontender Skin General skin exam: no rashes or lesions noted Neuro General: alert, awake, oriented x3 and tone normal Extrem General: no calf tenderness and no edema Psych Appearance: grossly normal Mental Status: mental status grossly normal Speech and Movement: speech and movement normal Affect: anxious affect Course Vital Signs Temperature 36.7 C 08/08/18 14:41 Pulse 107 H 08/08/18 14:41 Respiratory Rate 28 H 08/08/18 14:41 Pulse Oximetry 100 08/08/18 14:41 Temperature 36.7 C 08/08/18 14:41 Temperature Source Temporal Artery Scan 08/08/18 14:41 Pulse 107 H 08/08/18 14:41 Respiratory Rate 28 H 08/08/18 14:41 Respiratory Effort 08/08/18 14:51 Pulse Oximetry 100 08/08/18 14:41 Oxygen Delivery Method Room Air 08/08/18 14:41 Oxygen Flow Rate 0 08/08/18 14:41 Pain Level 1 08/08/18 14:41 Comment 08/08/18 14:41
--- NOTE | 2018-08-08 14:58 | ED.GENADUL_ITS ---
Discharge Plan Disposition Patient Disposition: HOME Discharge Details Chief Complaint: Chest Pain Clinical Impression: Palpitations, Chest pain Reason For Visit: chest pain Primary Care Provider: Tosin Steele ED Provider: Manfred Jade Home Meds and New Rx's Prescriptions: New aspirin 81 mg tablet,delayed release (DR/EC) 81 mg PO DAILY Qty: 30 RF: 0 Continued meloxicam [Mobic] 7.5 MG tablet 7.5 - 15 mg PO PRN PRNQty: 60 RF: 0 multivitamin Tablet 1 tab PO DAILY RF: 0 Discharge Instructions Instructions: Chest Pain (ED), Palpitations (ED) Additional Instructions: You should have a stress test performed as soon as possible and ideally within the next 72 hours. Please call to arrange stress test -see separate form. Avoid all caffeinated products. Please contact your primary care physician to arrange follow-up. Return to the ER for any worsening or new concerning symptoms. Stand Alone Forms: Work Release Referrals: Tosin Steele NP [Primary Care Provider] - Medical Decision Making 15:00 --43-year-old female presents after sudden onset of palpitations and episode of tachycardia with associated chest discomfort. Patient now asymptomatic but continues to have mild tachycardia which I suspect is secondary to anxiety. ECG reviewed and interpreted by me: Sinus tachycardia 102 bpm, normal axis, QTC 430, DE interval 142, no STEMI, nondiagnostic. Consider electrolyte abnormalities. Consider ACS. Consider arrhythmia. --Labs reviewed and nondiagnostic. Troponin and delta troponin negative. D- dimer negative. Chest x-ray interpreted by radiology as no acute process. Patient reassessed and heart rate improved. No recurrent chest discomfort here. Plan is to have the patient follow-up for outpatient stress test. I encouraged her to return for any worsening or new concerning symptoms. Disposition decision was made weighing the risks and benefits of hospitalization versus outpatient treatment, the risk for further decompensation, and the patient's wishes. The patient was stable and requested discharge. Prior to discharge, my usual and customary return precautions were reviewed with the patient - this included follow-up instructions and reason to return to the emergency department if c ondition worsens, does not improve as expected, or other new concerns arise. HPI General Mode of arrival: ambulatory . Date/Time Provider Initiated Documentation: 08/08/18 14:53 . Limitations to Documentation: no limitations . Information obtained by: patient . HPI Narrative: 43-year-old female presents with chief complaint of chest discomfort. Patient notes that around 2:15 PM today she developed palpitations. She had sensation like her heart was racing. She measured her heart rate to be 137bpm. At around 2:30 PM she developed discomfort. Discomfort described as a tightness. Discomfort was moderate. She also noted some tingling in her hands and pain that radiated down her left arm. Symptoms are resolved after about 1/2-hour. No associated nausea or abdominal pain. No associated leg pain or swelling. Related Data Home Medications Medication Instructions Recorded Confirmed meloxicam [Mobic] 7.5 - 15 mg PO PRN PRN #60 tab-cap 08/24/15 08/08/18 multivitamin 1 tab PO DAILY 03/18/18 08/08/18 aspirin 81 mg PO DAILY #30 tab 08/08/18 Previous Rx's Medication Instructions Recorded aspirin 81 mg PO DAILY #30 tab 08/08/18 Allergies Allergy/AdvReac Type Severity Reaction Status Date / Time ciprofloxacin Allergy rash Verified 08/08/18 14:50 Penicillins AdvReac Intermediate vomiting Unverified 08/08/18 14:50 General Stated Complaint: Chest Pain KRISTI: 2 Review of Systems Review of Systems All systems reviewed & are unremarkable except as noted in HPI and below Cardiovascular Reports as per HPI, Reports chest pain, Denies syncope, Reports rapid heart rate, Denies pedal edema and Reports dyspnea (during episode) Respiratory Reports dyspnea (during episode) Neurologic Denies syncope PFS Medical History Ovarian cyst (Chronic) Tobacco use disorder (Chronic 03/29/15) Irritable bowel syndrome with diarrhea (Chronic 03/08/15) Carpal tunnel syndrome on both sides (Chronic 03/08/15) Neck mass (Resolved) Tobacco use disorder Surgical History FNA midline neck mass (04/10/15) Infundibular follicykar cyst excision (05/02/15) Ligation of fallopian tube (03/21/98) Family History Mother Personal history of malignant neoplasm Father Personal history of malignant neoplasm Hyperlipidemia Myocardial infarction Grandmother Diabetes Social History number of children: 2 highest education level completed: high school graduate current occupational status: employed current occupation: LEGAL ADMINISTRATIVE SECRETARY pets and animals: Yes Smoking and Tabacco status: Current every day alcohol intake: never substance use type: does not use Seatbelt use: always Female Reproductive History Menstrual control method: permanent sterilization History History 3 Para 2 Hx # Term Pregnancies Multiple births Hx # Pregnancies Ectopic pregnancies AB induced 1 Hx Number of Living Children AB spontaneous Exam Const General: cooperative and no acute distress HENMT Head: normocephalic and atraumatic Mouth: moist mucous membranes Eyes Conjunctivae: normal conjunctivae Sclera: normal sclerae EOM: EOM intact bilaterally Neck Neck: trachea midline and supple Thyroid: thyroid normal Resp Auscultation: clear to auscultation bilaterally, no rales, no rhonchi and no wheezes Cardio Jugular venous pressure: no JVD Rate: regular rate and not tachycardic Rhythm: regular rhythm GI Palpation: soft, not firm, no guarding, no masses, not rigid and nontender Skin General skin exam: no rashes or lesions noted Neuro General: alert, awake, oriented x3 and tone normal Extrem General: no calf tenderness and no edema Psych Appearance: grossly normal Mental Status: mental status grossly normal Speech and Movement: speech and movement normal Affect: anxious affect Course Vital Signs Temperature 36.7 C 08/08/18 14:41 Pulse 107 H 08/08/18 14:41 Respiratory Rate 28 H 08/08/18 14:41 Pulse Oximetry 100 08/08/18 14:41 Temperature 36.7 C 08/08/18 14:41 Temperature Source Temporal Artery Scan 08/08/18 14:41 Pulse 107 H 08/08/18 14:41 Respiratory Rate 28 H 08/08/18 14:41 Respiratory Effort 08/08/18 14:51 Pulse Oximetry 100 08/08/18 14:41 Oxygen Delivery Method Room Air 08/08/18 14:41 Oxygen Flow Rate 0 08/08/18 14:41 Pain Level 1 08/08/18 14:41 Comment 08/08/18 14:41
[2018-08-08 15:18] LABS: Abs Immature Grans 0.01 k/cumm (0.0-0.09); Absolute Basophil Count 0.05 k/cumm (0.0-0.2); Absolute Eosinophil Count 0.09 k/cumm (0.0-0.7); Absolute Monocyte Count 0.57 k/cumm (0.11-0.7); Absolute Neutrophil Count 4.21 k/cumm (1.2-6.7); Basophils % 0.6; Eosinophils % 1.1; HCT 39.7 % (36.0-46.0); HGB 13.1 g/dL (12.0-15.5); Immature Grans % 0.1; Lymphocytes % 40.8; Mean Corpuscular Hemoglobin 29.8 pg (27.0-33.0); Mean Corpuscular Volume 90.4 fL (80-95); Mean Platelet Volume 10.5 fL (8.0-11.0); Monocytes % 6.8; Neutrophils % 50.6; Platelet Count 345 x1000/uL (130-400); RBC 4.39 m/cumm (4.00-5.20); RBC Distribution Width 14.1 % (11.7-14.6); White Blood Cell Count 8.33 k/cumm (4.4-10.8)
[2018-08-08 15:29] LABS: ALT 15 U/L (12-78); AST 14 U/L (15-37); Alkaline Phosphatase 53 U/L (46-116); Anion Gap 9.4 mmol/L (3-11); BUN 8 mg/dL (7-18); Bilirubin, Total 0.6 mg/dL (0.2-1.0); CO2 26.6 mmol/L (21.0-32.0); CREATININE 0.73 mg/dL (0.55-1.02); Calcium 9.2 mg/dL (8.5-10.1); Chloride 104 mmol/L (98-107); Glucose 98 mg/dL (70-100); Magnesium 1.9 mg/dL (1.8-2.4); Potassium 3.6 mmol/L (3.5-5.1); Sodium 140 mmol/L (136-145); TSH (W/Ref FT4) 2.26 uIU/mL (0.358-3.74); Total Protein 7.9 g/dL (6.4-8.2); Troponin I < 0.02 ng/mL (0.00-0.06)
--- NOTE | 2018-08-08 16:13 | NUR.NOTE ---
patient denies chest pain, patient shifted positions for comfort Nursing Note:
--- NOTE | 2018-08-08 16:38 | DI.RAD_ITS ---
SYMPTOM/DIAGNOSIS: PALPITATIONS, CHEST DISCOMFORT PA AND LATERAL CHEST: No priors. The heart is normal in size. The lungs are clear. The mediastinal structures and pleura appear intact. CONCLUSION: Normal chest.
--- NOTE | 2018-08-08 16:52 | DI.VRAD_ITS ---
EXAM: XR Chest, 2 Views EXAM DATE/TIME: 08/08/2018 4:40 PM CLINICAL HISTORY: 43 years old, female; Signs and symptoms; Other: Palpitations; Patient HX: Palpitations today TECHNIQUE: XR of the chest, 2 views. COMPARISON: No relevant prior studies available. FINDINGS: The cardiomediastinal silhouette and pulmonary vasculature are within normal limits. The lungs are clear. No pleural effusion or pneumothorax is identified. IMPRESSION: No acute process. Dictated and Authenticated by: Chet Allison MD. Ordering:ZABRINA Shearer MD
--- NOTE | 2018-08-08 18:07 | NUR.NOTE ---
patient's 2nd troponin sent 1737Nursing Note:
[2018-08-08 18:15] LABS: Troponin I < 0.02 ng/mL (0.00-0.06)
[2018-08-08 19:20] LABS: D-Dimer 340 ng/mlFEU (<500)
== END 2018-08-08 20:27 | disposition home or self-care (01) ==
PROVIDERS: Emergency Provider Student in an Organized Health Care Education/Training Program; PCP Nurse Practitioner Family
DX: R00.2 Palpitations (principal); R07.9 Chest pain, unspecified; R00.0 Tachycardia, unspecified
CPT/HCPCS: 80053; 93005; 99285; 71046; 83735; 84443; 84484; 85025; 85379; 93010; 99284

== ENCOUNTER 2018-08-12 00:11 | Outpatient (CLI) | payer MEDICAID, SELFPAY ==
--- NOTE | 2018-08-12 11:30 | ETT_ITS ---
*[facility]* *[facility]* [address] [place] [address] Stress Electrocardiography Sylvester protocol Date of study: 08/12/2018 *PATIENT PRESENTATION* Height: 154.9cm (61in) Blood Pressure: Weight: 56.4kg (124lb) BSA: 1.57m^2 Referring physician: Manfred Jade Ordering physician: Manfred Jade Impressions: Normal study after maximal exercise. Summary: 1. Stress ECG conclusions: The stress ECG is negative. Schafer treadmill score: 10. This score predicts a low risk of cardiac events. 2. Stress: The target heart rate was achieved. The heart rate response to stress is normal. There is a normal resting blood pressure with an appropriate response to stress. The patient experienced no chest pain during stress. Exercise capacity is above normal for age. 3. Treadmill exercise testing was performed using the Sylvester protocol. The patient exercised for 9 min 50 sec, to protocol stage 3, to a maximal work rate of 11.5mets. Exercise was terminated due to fatigue. Indication: R07.9, Appropriate Use Criteria: A (Appropriate). History: REASON FOR TESTING: PATIENT PRESENTED TO THE ER ON 08/08/18 AFTER SUDDEN ONSET OF CHEST TIGHTNESS AND SQUEEZING CHEST PAIN (11/09) ASSOCIATED WITH SOB, NAUSEA AND DIZZYNESS, WHICH LASTED APPROXIMATELY 30 MINUTES. SHE REPORTS CHEST PAIN WENT AWAY AFTER EATING YOGURT ON THE WAY TO THE HOSPITAL AND OXYGEN IN THE ER. SHE DENIES CHEST PAIN UPON ARRIVAL TO TESTING TODAY. NO SIGNIFICANT PAST MEDICAL HISTORY. SMOKING STATUS: CURRENT SMOKER WITH A 22 YEAR 1 PPD HISTORY. EXERCISE ROUTINE: VERY ACTIVE AT WORK WITH DAILY ADL'S. Risk factors: Family history of coronary artery disease. Current tobacco use. ALLERGIES: PENICILLIN, CIPROFLOXACIN. MEDICATIONS: MULTIVITAMIN DAILY, MOBIC 7.5 TO 15 MG PRN. Protocol: Sylvester protocol. Baseline ECG: SINUS RHYTHM. HR 95 BPM. Normal ECG. Stress protocol: + +---+ + !Stage !HR !BP (mmHg) ! + +---+ + !Baseline supine !95 !102/70 (81)! + +---+ + !Baseline standing !98 !90/68 (75) ! + +---+ + !Stage I; 1.7mph, 10degrees; 3 min !118!118/62 (81)! + +---+ + !Stage II; 2.5mph, 12degrees; 3 min !130!120/60 (80)! + +---+ + !Stage III; 3.4mph, 14degrees; 3 min!156!130/70 (90)! + +---+ + !Recovery; 1 min !158!150/72 (98)! + +---+ + !Recovery; 3 min !97 !106/60 (75)! + +---+ + !Recovery; 6 min !95 !96/60 (72) ! + +---+ + * Stress results: STRESS TEST ENDED IN 9 MINUTES 49 SECONDS DUE TO FATIGUE. NORMAL HEART RATE AND BLOOD PRESSURE RESPONSE TO EXERCISE. MAX HEART RATE: 174. 98 % OF TARGET HEART RATE ACHIEVED. MET'S: 11.52. NO ECTOPY. NO ANGINA. NO SIGNIFICANT ST SEGMENT CHANGES. FUNCTIONAL CAPACITY: ABOVE AVERAGE CAPACITY. Maximal heart rate during stress was 174bpm (99% of maximal predicted heart rate). The maximal predicted heart rate was 176bpm. The target heart rate was achieved. The heart rate response to stress is normal. There is a normal resting blood pressure with an appropriate response to stress. The rate-pressure product for the peak heart rate and blood pressure was 08870dr Hg/min. The patient experienced no chest pain during stress. Exercise capacity is above normal for age. Stress ECG: The stress ECG is negative. Schafer treadmill score: 10. This score predicts a low risk of cardiac events. Study data: Troy Haro MD supervised and was readily available during the procedure. This study was interpreted by [facility]. Study status: Routine. Consent: The risks, benefits, and alternatives to the procedure were explained to the patient and informed consent was obtained. Procedure: Initial setup. A baseline ECG was recorded. Surface ECG leads and manual cuff blood pressure measurements were monitored. Heart sounds: Normal. Lung sounds: Normal. Treadmill exercise testing was performed using the Sylvester protocol. The patient exercised for 9 min 50 sec, to protocol stage 3, to a maximal work rate of 11.5mets. Exercise was terminated due to fatigue. Study completion: The patient tolerated the procedure well and was discharged from the lab. Discharge: The patient left the laboratory in stable condition. Birthdate: Patient birthdate: 1975. Sex: Gender: female. Study date: Study date: 08/12/2018. Study time: 00:01 AM. Signature Documentation: The Stress ECG portion of this study was interpreted by Troy Haro MD. Electronically signed by Troy Haro 08/12/2018 12:51
== END 2018-08-12 00:31 ==
PROVIDERS: PCP Nurse Practitioner Family; Visit Provider Student in an Organized Health Care Education/Training Program
DX: R07.9 Chest pain, unspecified (principal); R06.02 Shortness of breath; R42 Dizziness and giddiness; F17.200 Nicotine dependence, unspecified, uncomplicated; Z82.49 Family history of ischemic heart disease and other diseases of the circulatory system
CPT/HCPCS: 93017

== ENCOUNTER 2018-08-20 15:04 | Outpatient (CLI) | payer MEDICAID, SELFPAY ==
--- NOTE | 2018-08-24 15:07 | HOLTER_ITS ---
DATE OF DICTATION: August 24, 2018 HOLTER MONITOR REPORT STUDY INDICATION: Palpitations. REQUESTING PROVIDER: Tosin Steele N.P. FINDINGS: The patient was monitored for one day. Baseline sinus rhythm. Average heart rate 87 bpm. Heart rate range 65-122 bpm. Two PVC's. Four PAC's. One 29-beat atrial run, maximum heart rate 146 bpm. Seven patient events. All events correlated with sinus rhythm with heart rates between 95 and 108 bpm. FINAL INTERPRETATION: Asymptomatic burst atrial tachycardia.
== END 2018-08-20 15:24 ==
PROVIDERS: PCP Nurse Practitioner Family; Visit Provider Nurse Practitioner Family
DX: R00.2 Palpitations (principal); I47.1 Supraventricular tachycardia
CPT/HCPCS: 93225

== ENCOUNTER 2018-08-24 11:12 | Outpatient (CLI) | payer MEDICAID, SELFPAY | END 2018-08-24 11:32 | PROVIDERS: PCP Nurse Practitioner Family; Visit Provider Nurse Practitioner Family | DX: R00.2 Palpitations (principal); I47.1 Supraventricular tachycardia | CPT/HCPCS: 93226 ==

== ENCOUNTER 2018-09-12 22:45 | Emergency (ER) | payer SELFPAY ==
--- NOTE | 2018-09-12 22:46 | W.ED.GENAD ---
Discharge Plan Disposition Patient Disposition: HOME Condition: Stable Discharge Details Chief Complaint: EyeProblem Clinical Impression: Injury of conjunctiva and corneal abrasion of left eye w/o FB Primary Care Provider: Tosin Steele ED Provider: Roni Tracey Home Meds and New Rx's Prescriptions: No Action meloxicam [Mobic] 7.5 MG tablet 7.5 - 15 mg PO PRN PRNQty: 60 RF: 0 multivitamin Tablet 1 tab PO DAILY RF: 0 Discharge Instructions Instructions: Corneal Abrasion (ED) Medical Decision Making 43 yo female comes in with chief complaint of left eye pain. She states earlier today a quoc of wind blew sand in her face and caused pain in the left eye. She has no significant conjunctival injection, perrl, no periorbital swelling, eomi without pain, iop 12 in both eyes. She had no foreign body seen even on eyelid eversion. Had immediate relief of pain with tetracaine. She has a 2mm corneal abrasion at 4 oclock on the conjunctiva. Will start erythromycin ointment and have her f/u with [facility] if still symptomatic Friday Differential Diagnosis corneal abrasion, foreign body HPI General Mode of arrival: ambulatory. Date/Time Provider Initiated Documentation: 09/12/18 22:45. Limitations to Documentation: no limitations. Information obtained by: patient. History of Present Illness 43 year old F presents to the emergency department with the chief complaint of left eye pain, described as moderate, Quality is described as burning and aching, and is localized to the eyes and left. Patient started experiencing this hour(s) (6) and it has been constant. No relieving factors improve symptom(s), No exacerbating factors reported . Patient notes no other symptoms.. Patient did receive the following treatments prior to arrival, none Related Data Home Medications Medication Instructions Recorded Confirmed meloxicam [Mobic] 7.5 - 15 mg PO PRN PRN #60 tab-cap 08/24/15 09/12/18 multivitamin 1 tab PO DAILY 03/18/18 09/12/18 Allergies Allergy/AdvReac Type Severity Reaction Status Date / Time ciprofloxacin Allergy rash Verified 09/12/18 22:57 Penicillins AdvReac Intermediate vomiting Unverified 09/12/18 22:57 General KRISTI: 2 Review of Systems Review of Systems All systems reviewed & are unremarkable except as noted in HPI and below Constitutional Denies chills, Denies fever(s) and Denies weakness Cardiovascular Denies chest pain and Denies dyspnea Respiratory Denies cough and Denies dyspnea Gastrointestinal Denies abdominal pain, Denies nausea and Denies vomiting Integumentary/Breasts Denies rash Neurologic Denies weakness PFSH Medical History Ovarian cyst (Chronic) Tobacco use disorder (Chronic 03/29/15) Irritable bowel syndrome with diarrhea (Chronic 03/08/15) Carpal tunnel syndrome on both sides (Chronic 03/08/15) Neck mass (Resolved) Tobacco use disorder Surgical History FNA midline neck mass (04/10/15) Infundibular follicykar cyst excision (05/02/15) Ligation of fallopian tube (03/21/98) Family History Mother Personal history of malignant neoplasm Father Personal history of malignant neoplasm Hyperlipidemia Myocardial infarction Grandmother Diabetes Social History Smoking/Tobacco Use Status: Current every day Alcohol Intake: never Drug use: Never Substance use type: does not use Caregiver/Support person: No Housing: apartment Number of Children: 2 Communication Needs: None current occupation: TEMPORARY DATA ENTRY CLERK Pets and animals: Yes Current gender identity: female Seatbelt use: always Do you feel safe at home: Yes Do you feel safe in your relationship?: Yes Female Reproductive History Menstrual control method: permanent sterilization History History 3 Para 2 Hx # Term Pregnancies Multiple births Hx # Pregnancies Ectopic pregnancies AB induced 1 Hx Number of Living Children AB spontaneous Exam Const General: no acute distress Orientation: alert HENMT Head: normal to inspection Ears: external ears normal General nose exam: external nose normal Mouth: moist mucous membranes Eyes Visual Adkins: normal visual adkins by confrontation Periorbital: periorbital findings normal Neck Neck: normal visual inspection Resp Effort & Inspection: normal respiratory effort and able to speak in complete sentences Cardio Rate: regular rate Skin General skin exam: no rashes or lesions noted Neuro General: alert and oriented x3 Extrem General: normal to inspection Psych Mental Status: mental status grossly normal
[2018-09-12 22:52] VITALS: PULSE 86; RESP 20; TEMP 37.1; O2SAT 100
[2018-09-12] MEDS: Fluorescein STRIPS 100/BOX 1 MG (23:14)
[2018-09-12] MEDS: Tetracaine 0.5% 4 ML BTL (23:14)
[2018-09-12] MEDS: Balanced Salt Solution 15 ML BTL (23:14)
--- NOTE | 2018-09-12 23:14 | ED.GENADUL_ITS ---
Discharge Plan Disposition Patient Disposition: HOME Condition: Stable Discharge Details Chief Complaint: EyeProblem Clinical Impression: Injury of conjunctiva and corneal abrasion of left eye w/o FB Primary Care Provider: Tosin Steele ED Provider: Roni Tracey Home Meds and New Rx's Prescriptions: No Action meloxicam [Mobic] 7.5 MG tablet 7.5 - 15 mg PO PRN PRNQty: 60 RF: 0 multivitamin Tablet 1 tab PO DAILY RF: 0 Discharge Instructions Instructions: Corneal Abrasion (ED) Medical Decision Making 43 yo female comes in with chief complaint of left eye pain. She states earlier today a uqoc of wind blew sand in her face and caused pain in the left eye. She has no significant conjunctival injection, perrl, no periorbital swelling, eomi without pain, iop 12 in both eyes. She had no foreign body seen even on eyelid eversion. Had immediate relief of pain with tetracaine. She has a 2mm corneal a brasion at 4 oclock on the conjunctiva. Will start erythromycin ointment and have her f/u with [facility] if still symptomatic Friday Differential Diagnosis corneal abrasion, foreign body HPI General Mode of arrival: ambulatory . Date/Time Provider Initiated Documentation: 09/12/18 22:45 . Limitations to Documentation: no limitations . Information obtained by: patient . History of Present Illness 43 year old F presents to the emergency department with the chief complaint of left eye pain, described as moderate, Quality is described as burning and aching, and is localized to the eyes and left. Patient started experiencing this hour(s) (6) and it has been constant. No relieving factors improve symptom(s), No exacerbating factors reported . Patient notes no other symptoms.. Patient did receive the following treatments prior to arrival, none Related Data Home Medications Medication Instructions Recorded Confirmed meloxicam [Mobic] 7.5 - 15 mg PO PRN PRN #60 tab-cap 08/24/15 09/12/18 multivitamin 1 tab PO DAILY 03/18/18 09/12/18 Allergies Allergy/AdvReac Type Severity Reaction Status Date / Time ciprofloxacin Allergy rash Verified 09/12/18 22:57 Penicillins AdvReac Intermediate vomiting Unverified 09/12/18 22:57 General KRISTI: 2 Review of Systems Review of Systems All systems reviewed & are unremarkable except as noted in HPI and below Constitutional Denies chills, Denies fever(s) and Denies weakness Cardiovascular Denies chest pain and Denies dyspnea Respiratory Denies cough and Denies dyspnea Gastrointestinal Denies abdominal pain, Denies nausea and Denies vomiting Integumentary/Breasts Denies rash Neurologic Denies weakness PFSH Medical History Ovarian cyst (Chronic) Tobacco use disorder (Chronic 03/29/15) Irritable bowel syndrome with diarrhea (Chronic 03/08/15) Carpal tunnel syndrome on both sides (Chronic 03/08/15) Neck mass (Resolved) Tobacco use disorder Surgical History FNA midline neck mass (04/10/15) Infundibular follicykar cyst excision (05/02/15) Ligation of fallopian tube (03/21/98) Family History Mother Personal history of malignant neoplasm Father Personal history of malignant neoplasm Hyperlipidemia Myocardial infarction Grandmother Diabetes Social History Smoking/Tobacco Use Status: Current every day Alcohol Intake: never Drug use: Never Substance use type: does not use Caregiver/Support person: No Housing: apartment Number of Children: 2 Communication Needs: None 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 Pets and animals: Yes Current gender identity: female Seatbelt use: always Do you feel safe at home: Yes Do you feel safe in your relationship?: Yes Female Reproductive History Menstrual control method: permanent sterilization History History 3 Para 2 Hx # Term Pregnancies Multiple births Hx # Pregnancies Ectopic pregnancies AB induced 1 Hx Number of Living Children AB spontaneous Exam Const General: no acute distress Orientation: alert HENMT Head: normal to inspection Ears: external ears normal General nose exam: external nose normal Mouth: moist mucous membranes Eyes Visual Adkins: normal visual adkins by confrontation Periorbital: periorbital findings normal Neck Neck: normal visual inspection Resp Effort & Inspection: normal respiratory effort and able to speak in complete sentences Cardio Rate: regular rate Skin General skin exam: no rashes or lesions noted Neuro General: alert and oriented x3 Extrem General: normal to inspection Psych Mental Status: mental status grossly normal
[2018-09-12] MEDS: Erythromycin Ophth Oint 3.5 GM TUBE OP (23:18)
== END 2018-09-12 23:21 | disposition home or self-care (01) ==
LOC: ER 23:57
PROVIDERS: Emergency Provider Emergency Medicine; PCP Nurse Practitioner Family
DX: S05.02XA Injury of conjunctiva and corneal abrasion without foreign body, left eye, initial encounter (principal); X58.XXXA Exposure to other specified factors, initial encounter
CPT/HCPCS: 99283

== ENCOUNTER 2019-01-20 15:26 | Emergency (ER) | payer SELFPAY ==
[2019-01-20 15:31] VITALS: BP 105/72; PULSE 93; RESP 18; TEMP 38; O2SAT 99
[2019-01-20 16:23] LABS: Clarity Clear (Clear); Specific Gravity 1.025 (1.005-1.025)
[2019-01-20 16:32] LABS: Bacteria Few HPF (Negative); C & S Indicated? No; Casts Negative LPF (Negative); Crystals Negative HPF (Negative); Epithelial Cells Rare HPF (Negative); Mucus Heavy (Negative); Other Cells Negative (Negative); WBC 0-2 HPF (0-5)
--- NOTE | 2019-01-20 16:35 | W.ED.GENAD ---
Discharge Plan Disposition Patient Disposition: HOME Discharge Details Chief Complaint: Urinary Clinical Impression: UTI (urinary tract infection) Primary Care Provider: Tosin Steele ED Provider: Manfred Jade Home Meds and New Rx's Prescriptions: New sulfamethoxazole-trimethoprim [Bactrim DS] 800-160 mg tablet 1 tab PO BID Qty: 27 RF: 0 Continued meloxicam [Mobic] 7.5 MG tablet 7.5 - 15 mg PO PRN PRNQty: 60 RF: 0 multivitamin Tablet 1 tab PO DAILY RF: 0 Discharge Instructions Instructions: Kidney Infection (ED) Additional Instructions: Take full course of antibiotic as prescribed. Please take acetaminophen (tylenol) - 650mg every 6 hours by mouth as needed for pain. Please contact your primary care physician to arrange follow-up. Return to the ER for any worsening or new concerning symptoms. Stand Alone Forms: Work Release Referrals: Tosin Steele, KULWANT [Primary Care Provider] - Medical Decision Making 43-year-old female with history of ovarian cyst, urinary tract infection about a year ago, here with increased urinary frequency, dysuria, suprapubic fullness and some low back discomfort with associated fever over the past day and a half. Urinalysis reviewed and she does have a few red blood cells and few white blood cells. Nitrite negative. Given her symptoms I am concerned about a urinary tract infection. Plan to send urine culture. Patient has penicillin allergy including vomiting and also allergy to ciprofloxacin. Urine culture in 2018 was pansensitive. I will start Bactrim and treat with course for early pyelonephritis. Patient was encouraged to follow-up with her primary care physician and to return for any worsening or new concerning symptoms. Usual and customary discharge instructions were provided. HPI General Mode of arrival: ambulatory. Date/Time Provider Initiated Documentation: 01/20/19 16:01. Limitations to Documentation: no limitations. Information obtained by: patient. HPI Narrative: 43-year-old female with history of urinary tract infection 1 year ago, ovarian cyst, here with chief complaint of urinary discomfort. Patient notes dysuria, increased urinary frequency, suprapubic fullness, low back pain and associated fever over the past 1.5 days. Symptoms are moderate. No modifiers. She has been taking Azo which has not provided resolution of symptoms. Related Data Home Medications Medication Instructions Recorded Confirmed meloxicam [Mobic] 7.5 - 15 mg PO PRN PRN #60 tab-cap 08/24/15 01/20/19 multivitamin 1 tab PO DAILY 03/18/18 01/20/19 sulfamethoxazole-trimethoprim 1 tab PO BID #27 tab 01/20/19 [Bactrim DS] Previous Rx's Medication Instructions Recorded sulfamethoxazole-trimethoprim 1 tab PO BID #27 tab 01/20/19 [Bactrim DS] Allergies Allergy/AdvReac Type Severity Reaction Status Date / Time ciprofloxacin Allergy rash Verified 09/12/18 22:57 Penicillins AdvReac Intermediate vomiting Unverified 09/12/18 22:57 General Stated Complaint: Urinary KRISTI: 4 Review of Systems Review of Systems All systems reviewed & are unremarkable except as noted in HPI and below Constitutional Reports fever(s) Gastrointestinal Denies nausea and Denies vomiting Genitourinary Reports as per HPI PFSH Medical History Carpal tunnel syndrome on both sides (Chronic 03/08/15) Irritable bowel syndrome with diarrhea (Chronic 03/08/15) Neck mass (Resolved) Ovarian cyst (Chronic) Tobacco use disorder Tobacco use disorder (Chronic 03/29/15) Surgical History FNA midline neck mass (04/10/15) Infundibular follicykar cyst excision (05/02/15) Ligation of fallopian tube (03/21/98) Family History Mother Personal history of malignant neoplasm Father Personal history of malignant neoplasm Hyperlipidemia Myocardial infarction Grandmother Diabetes Social History Smoking/Tobacco Use Status: Current every day Alcohol Intake: never Drug use: Never Substance use type: does not use Caregiver/Support person: No Housing: apartment Number of Children: 2 Communication Needs: None current occupation: [employer] Pets and animals: Yes Current gender identity: female Seatbelt use: always Do you feel safe at home: Yes Do you feel safe in your relationship?: Yes Female Reproductive History Menstrual control method: permanent sterilization History History 3 Para 2 Hx # Term Pregnancies Multiple births Hx # Pregnancies Ectopic pregnancies AB induced 1 Hx Number of Living Children AB spontaneous Exam Const General: cooperative and no acute distress HENMT Mouth: moist mucous membranes Eyes Conjunctivae: normal conjunctivae Sclera: normal sclerae Resp Auscultation: clear to auscultation bilaterally, no rales, no rhonchi and no wheezes Cardio Jugular venous pressure: no JVD Rate: regular rate and not tachycardic Rhythm: regular rhythm GI Palpation: soft, not firm, no guarding, no masses, not rigid and tender (suprapubic) Auscultation: normal bowel sounds Neuro General: alert, awake and tone normal Extrem General: no edema Course Vital Signs Temperature 38.0 C H 01/20/19 15:31 Pulse 93 H 01/20/19 15:31 Respiratory Rate 18 01/20/19 15:31 Blood Pressure 105/72 01/20/19 15:31 Pulse Oximetry 99 01/20/19 15:31 Temperature 38.0 C H 01/20/19 15:31 Temperature Source Tympanic 01/20/19 15:31 Pulse 93 H 01/20/19 15:31 Respiratory Rate 18 01/20/19 15:31 Respiratory Effort Non-Labored 01/20/19 15:35 Blood Pressure 105/72 01/20/19 15:31 Blood Pressure Position Supine 01/20/19 15:31 Pulse Oximetry 99 01/20/19 15:31 Oxygen Delivery Method Room Air 01/20/19 15:31 Oxygen Flow Rate 0 01/20/19 15:31 Lab/Test Results Lab/Test Results: Laboratory Tests Range/Units 01/20/19 01/20/19 15:43 15:47 Urine Color (Yellow) [place] Urine Clarity (Clear) Clear Urine pH (5-8) Ur Specific [place] (1.005-1.025) 1.025 Urine Protein (Negative) mg/dL Urine Ketones (Negative) mg/dL Urine Blood (Negative) Urine Nitrite (Negative) Urine Bilirubin (Negative) Urine Urobilinogen (Up TO 0.2) EU/dL Ur Leukocyte Esterase (Negative) Urine RBC Cancelled 3-5 H Urine WBC Cancelled 0-2 Ur Epithelial Cells Cancelled Rare Urine Crystals Cancelled Negative Urine Bacteria Cancelled Few Urine Casts Cancelled Negative Urine Mucus Cancelled Heavy Urine Other Cancelled Negative Ur Culture Indicated? Cancelled No Urine Glucose (Negative) mg/dL
[2019-01-20] MEDS: Sulfameth/Trimeth DS TAB 1 TAB PO (16:43)
[2019-01-20] MEDS: Ibuprofen 600 MG TAB PO (16:43)
[2019-01-20 16:49] VITALS: TEMP 37
== END 2019-01-20 16:55 | disposition home or self-care (01) ==
PROVIDERS: Nurse Practitioner Family; Emergency Provider Student in an Organized Health Care Education/Training Program; PCP Nurse Practitioner Family
DX: N39.0 Urinary tract infection, site not specified (principal); Z87.440 Personal history of urinary (tract) infections
CPT/HCPCS: 99283; 81003; 81015; 87086

== ENCOUNTER 2020-01-26 16:39 | Outpatient (REF) | payer SELFPAY | END 2020-01-26 16:59 | LOC: LBN 16:39 | PROVIDERS: PCP Nurse Practitioner Family; Visit Provider Nurse Practitioner Adult Health | DX: R30.0 Dysuria (principal) | CPT/HCPCS: 87086 ==